=== PATIENT | female | born 1950 | race Caucasian/White ===

== ENCOUNTER → 2019-08-09 | Day surgery (SDC) | payer MEDICARE, OTHER ==
[2019-08-04 11:27] LABS: BASOPHILS % 0.7 % (0.0-1.0); EOSINOPHILS # (AUTO) 0.1 (0.0-0.4); EOSINOPHILS % 1.1 % (0.0-6.0); HEMATOCRIT 41.5 % (34.2-44.1); HEMOGLOBIN 13.6 g/dL (12.0-16.0); LYMPHOCYTES # (AUTO) 1.9 (1.0-3.2); LYMPHOCYTES % 30.5 % (18.0-39.1); MEAN CORPUSCULAR HEMOGLOBIN 30.8 pg (28-32); MEAN CORPUSCULAR HGB CONC 32.8 g/dL (31-35); MEAN CORPUSCULAR VOLUME 93.9 fL (81-99); MONOCYTES # (AUTO) 0.5 (0.2-0.8); MONOCYTES % 7.7 % (4.4-11.3); NEUTROPHILS # (AUTO) 3.6 (2.1-6.9); NEUTROPHILS % 59.7 % (38.7-80.0); PLATELET COUNT 224 x10e3/uL (140-360); RED BLOOD COUNT 4.42 x10e6/uL (3.6-5.1); RED CELL DISTRIBUTION WIDTH 11.8 % (11.7-14.4)
[~2019-08-09] MED LIST: CLONAZEPAM0.5 MG PO; FENTANYL CITRATE/PF 100MCG/2 ML INJ ONE; LIDOCAINE HCL 2% LOCAL INJ 5 ML SDV VIAL INJ ONE; MIDAZOLAM HCL 2 MG/2 ML VIAL ONE; PROPOFOL IV EMULSION 10 MG/ML 20 ML VIAL ONE; SINEMET 25-1001 EACH PO
--- OUTSIDE RECORDS SUMMARY | 2019-08-09 10:00 | XMS REPORT | Clinical Summary ---
Author Author [facility] Organization [facility] Address Unknown Phone Unavailable Care Team Providers Care Airworthiness Safety Inspector Name Role Phone PCP Unavailable Allergies No Known Allergies Medications End Date Status Medication Sig Dispensed Refills Start Date Active Pyridoxine HCl (VITAMIN Take by 0 B-6 OR) mouth. Active VITAMIN E OR Take by 0 mouth. Active MAGNESIUM OR Take by 0 mouth. Active VITAMIN A OR Take by 0 mouth. Active Cholecalciferol (VITAMIN Take by 0 D OR) mouth. Active Cyanocobalamin (B-12) 250 Take by 0 MCG TABS mouth. Active TURMERIC OR Take by 0 mouth. Active Psyllium (METAMUCIL OR) Take by 0 mouth. Active carbidopa-levodopa Take 2 Tabs 180 Tab 5 (SINEMET) 25-100 MG per by mouth 3 9 tablet times daily. Active clonazepam (KLONOPIN) 0.5 Take 0.5 Tabs 90 Tab 1 MG tablet by mouth 9 daily as needed for Other (anxiety). Active Problems Problem Noted Date Parkinson disease (HCCode) 12/08/2018 Encounters Care Team Description Date Type Specialty Marvin Worley MD Movement Disorder 04/08/2019 Office Visit Neurology from Last 3 Months Social History Date Tobacco Use Types Packs/Day Years Used Never Smoker Smokeless Tobacco: Never Used Drinks/Week oz/Week Comments Alcohol Use Not Currently Sex Assigned at Date Recorded Not on file Industry Job Start Date Occupation Not on file Not on file Not on file Travel End Travel History Travel Start No recent travel history available. Last Filed Vital Signs Reading Time Taken Comments Vital Sign 115/68 04/08/2019 12:58 PM CDT Blood Pressure 64 04/08/2019 12:58 PM CDT Pulse - - Temperature - - Respiratory Rate - - Oxygen Saturation - - Inhaled Oxygen Concentration 62.1 kg (137 lb) 04/08/2019 12:58 PM CDT Weight 170.2 cm (5' 7") 04/08/2019 12:58 PM CDT Height 21.46 04/08/2019 12:58 PM CDT Body Mass Index Plan of Treatment Health Maintenance Due Date Last Done Comments COLON CANCER SCREENIN1948 COLONOSCOPY MAMMOGRAM ANNUAL 1948 MEDICARE AWV 1950 TETANUS SHOT (ADULT) 12/13/1963 HEPATITIS C SCREENING 1966 MEDICARE AWV (Initial) 11/20/2013 FALL SCREEN 2013 OSTEOPOROSIS SCREENING 2013 PNEUMOVAX >=65 (PPSV23) 2013 PREVNAR >=65 (PCV13) 2013 FLU VACCINE > 6 MONTHS 01/20/2019 Results Not on filefrom Last 3 Months Insurance Type Payer Benefit Subscriber ID Effective Phone Address Plan / Dates Group Medicare MEDICARE MEDICARE xxxxxxxxxxx 2013-P [id number] [place] [address] Medicare AETNA AETNA xxxxxxxxxx 2016- [address] Present [id number] [place] [address]
--- OUTSIDE RECORDS SUMMARY | 2019-08-09 10:00 | XMS REPORT | Summary of Care ---
Author Author [facility] Organization [facility] Address Unknown Phone Unavailable Care Team Providers Care Smearer Name Role Phone PCP Unavailable Reason for Referral * Consult, Test & Treat (Routine) Referred By Contact Referred To Contact Status Reason Specialty Diagnoses / Procedures Marvin Worley MD [address], [facility] [address] [place] [address] [place] [facility] [address] [facility] [address]th [address], [address] [place] [address] Pending Consult, Test, and Neuropsychology Diagnoses Treat Parkinson disease (HCCode) P rocedures GA NEUROBEHAVIORAL STATUS XM PHYS/QHP 1ST HOUR GA NEUROBEHAVIORAL STATUS XM PHYS/QHP EA ADDL HOUR GA NEUROPSYCHOLOGICAL TST EVAL PHYS/QHP 1ST HOUR GA NEUROPSYCHOLOGICAL TST EVAL PHYS/QHP EA ADDL HR GA PSYL/NRPSYCL TST PHYS/QHP 2+ TST 1ST 30 MIN GA PSYCL/NRPSYCL TST PHYS/QHP 2+ TST EA ADDL 30 MIN GA PSYCL/NRPSYCL TST TECH 2+ TST 1ST 30 MIN GA PSYCL/NRPSYCL TST TECH 2+ TST EA ADDL 30 MIN Reason for Visit * Reason Comments Movement Disorder Encounter Details Care Team Description Date Type Department Marvin Worley MD [address] [facility] [place] [address] Movement Disorder 04/08/2019 Office Visit [facility] Neurology [address] [facility]th [address], [address] [place] [address] Allergies No Known Allergiesdocumented as of this encounter (statuses as of 04/16/2019) Medications End Date Status Medication Sig Dispensed [...] 9 daily as needed for Other (anxiety). 04/08/2019 Discontinued clonazepam (KLONOPIN) 0.5 Take 0.5 Tabs 30 Tab 2 MG tablet by mouth 9 daily as needed for Other (anxiety). documented as of this encounter (statuses as of 04/16/2019) Active Problems Problem Noted Date Parkinson disease (HCCode) 12/08/2018 documented as of this encounter (statuses as of 04/16/2019) Social History Date Tobacco Use Types Packs/Day Years Used Never Smoker Smokeless Tobacco: Never Used Drinks/Week oz/Week Comments Alcohol Use Not Currently Sex Assigned at Date Recorded Not on file Industry Job Start Date Occupation Not on file Not on file Not on file Travel End Travel History Travel Start No recent travel history available. documented as of this encounter Last Filed Vital Signs Reading Time Taken [...] 04/08/2019 12:58 PM CDT Body Mass Index documented in this encounter Progress Notes * Marvin Worley MD - 04/08/2019 1:00 PM CDT Subjective: Patient is a 68 y.o. female with PD here for follow up. Her tremor improved with the levodopa; she has less frequent cramps, and moves e asier with the medication. She felt unmotivated and light headed with levodopa when she increased to 2 tab. Currently she divides the levodopa up to every hour; she will take 6+ pills/day She still has difficulty with falling asleep but this is managed with clonazepam . Objective: carbidopa-levodopa (SINEMET) 25-100 MG per tablet Take 2 Tabs by mouth 3 og es daily. Cholecalciferol (VITAMIN D OR) Take by mouth. clonazepam (KLONOPIN) 0.5 MG tablet Take 0.5 Tabs by mouth daily as needed f or Other (anxiety). Cyanocobalamin (B-12) 250 MCG TABS Take by mouth. MAGNESIUM OR Take by mouth. Psyllium (METAMUCIL OR) Take by mouth. Pyridoxine HCl (VITAMIN B-6 OR) Take by mouth. TURMERIC OR Take by mouth. VITAMIN A OR Take by mouth. VITAMIN E OR Take by mouth. Vitals: 04/08/19 1258 BP: 115/68 BP Location: right arm Patient Position: Sitting Cuff Size: regular Pulse: 64 Weight: 137 lb (62.1 kg) Height: 5' 7" (1.702 m) General: Alert, fluent speech, normal comprehension. Motor: Strength 5/5 in all extremities. 2+ BK bilaterally. Trace rigidity prima rily in right arm. Involuntary Movements: Trace kinetic tremor bilaterally. Rare right hand rest t remor (2+) with activation. Coordination: Finger to nose and rapid alternating movements are normal. Gait: Good initiation with normal stride length. Assessment: Ms. Ramirez is a 68 y.o. with PD overall doing well with levodopa but difficulty tolerating higher dosing (needs to spread doses out); reported side effects sli ghtly atypical. Plan: - referral for neuropsychological testing to establish baseline. - refilled clonazepam - continue Sinemet 1 tab 6x/day; consider Rytary if needing to increase dose and Sinemet not tolerated More than 51% of this 25 minute encounter was directly spent on patient counseli ng and coordination of care. Marvin Worley MD documented in this encounter Plan of Treatment Order Schedule Name Type Priority Associated Diagnoses Ordered: 04/08/2019 AMB REF TO NEUROPSYCH Outpatient Routine Parkinson disease [facility] Referral (HCCode) Health Maintenance Due Date Last Done Comments COLON CANCER SCREENIN1948 COLONOSCOPY MAMMOGRAM ANNUAL 1948 MEDICARE AWV 1948 TETANUS SHOT (ADULT) 12/13/1963 HEPATITIS C SCREENING 1966 FALL SCREEN 2013 OSTEOPOROSIS SCREENING 2013 PNEUMOVAX >=65 (PPSV23) 2013 PREVNAR >=65 (PCV13) 2013 FLU VACCINE > 6 MONTHS 01/20/2019 documented as of this encounter Results Not on filedocumented in this encounter Visit Diagnoses Diagnosis Parkinson disease (HCCode) - Primary Paralysis agitans documented in this encounter Insurance Type Payer Benefit Subscriber ID Effective Phone Address Plan / Dates Group Medicare MEDICARE MEDICARE xxxxxxxxxxx 2013-P [id number] [place] [address] Medicare AETNA AETNA xxxxxxxxxx 2016- [id number] [place] [address] documented as of this encounter
[2019-08-09 13:30] VITALS: BP 118/68
--- NOTE | 2019-08-09 13:53 | Operative Report ---
DATE OF PROCEDURE: 08/09/2019 SURGEON: Rafi Mireles MD PROCEDURE: Colonoscopy with polypectomy. INDICATIONS FOR COLONOSCOPY: Colorectal cancer screening. MEDICATIONS: The patient was done under MAC, please see anesthesiologist's note. PROCEDURE IN DETAIL: With the patient in the left lateral decubitus position, a flexible fiberoptic Olympus colonoscope was inserted into the rectum with ease and was advanced all the way to the cecum. It was then withdrawn slowly, mucosa overlying the cecum, ascending colon, and transverse colon appeared to be within normal limits. One polyp was hot biopsied from the proximal descending colon and the site was hemoclipped x1. The rest of the descending, sigmoid, and rectum appeared to be within normal limits. The scope was then retroflexed into the distal rectum and small internal hemorrhoids were noted, none of which was actively bleeding. The scope was then straightened out, it was subsequently withdrawn, and the patient tolerated the procedure well. IMPRESSION: 1. Descending colon polyp, hot biopsied and polypectomy site hemoclipped x1. 2. Internal hemorrhoids, none actively bleeding. PLAN: Follow up histology. Initiate high-fiber, low-fat diet. Initiate high-fiber supplement. The patient might benefit from a followup colonoscopy in 5 years. Rafi Mireles MD [facility] [place] /[id number] cc: Barbara Trevino MD
== END | disposition home or self-care (01) ==
LOC: OR 09:53
PROVIDERS: ATTEND Internal Medicine Gastroenterology
DX: Z12.11 Encounter for screening for malignant neoplasm of colon (principal); K63.5 Polyp of colon; K64.8 Other hemorrhoids; G20 Parkinson's disease; Z01.810 Encounter for preprocedural cardiovascular examination; Z01.812 Encounter for preprocedural laboratory examination
CPT/HCPCS: 36415; 45384; 85025; 88305; 93005; J2001; J2250; J2704; J3010